=== PATIENT | male | born 1970 | race Caucasian/White ===

== ENCOUNTER 2021-04-01 18:36 | Inpatient (IN) | payer MEDICAID, OTHER ==
[~2021-04-01] VITALS: Ht 177.8 cm; Wt 118.0 kg
[2021-04-01] MEDS ORDERED: LORazepam 2MG/ML-1ML VIAL IV ONE (19:30)
[2021-04-01] MEDS ORDERED: SODIUM CHLORIDE 0.9% 1,000 ML IV ONE ×2 (19:30)
[2021-04-01 19:38] LABS: Hematocrit 50.1 % (41.0-53.0); Hemoglobin 16.7 g/dL (13.5-17.5); Mean Corpuscular Hemoglobin 29.5 pg (28.0-32.0); Mean Corpuscular Hgb Conc. 33.4 g/dL (32.0-36.0); Mean Corpuscular Volume 88.4 fL (80.0-100.0); Platelet Count (auto) 345 10^3/uL (140-450); Red Blood Cells 5.66 10^6/uL (4.5-5.90); White Blood Cell 23.7 10^3/uL (4.4-10.8)
[2021-04-01 19:53] LABS: Basophils % (manual) 0 (0.0-2.0); Blast Cells 0; Eosinophils % (manual) 0 (0-7); Metamyelocytes % 0; Myelocytes % 0; Promyelocytes % 0; Reactive Lymphocytes 0
[2021-04-01 19:55] LABS: Albumin 5.7 g/dL (3.4-5.0); Calcium 10.8 mg/dL (8.5-10.1); Potassium 4.4 mmol/L (3.5-5.1)
[2021-04-01 20:00] LABS: BUN/Creatinine Ratio 6.8
[2021-04-01 20:10] LABS: Bilirubin, Total 3.6 mg/dL (0.2-1.0)
[2021-04-01 20:31] LABS: Band Neutrophils % (manual) 4; Lymphocytes % (manual) 11 (10.0-50.0); Monocytes % (manual) 3 (0-12)
[2021-04-01 20:38] LABS: Magnesium 2.2 mg/dL (1.6-2.6)
[2021-04-01] MEDS ORDERED: cloNIDine HCL 0.1 MG TAB PO PRN (21:00)
[2021-04-01] MEDS ORDERED: TEMAZEPAM 15 MG CAP PO PRN (21:00)
[2021-04-01] MEDS ORDERED: MORPHINE SULF INJ 2 MG/ML SYRINGE 1ML IV PRN (21:00)
[2021-04-01] MEDS ORDERED: ONDANSETRON HCL 4 MG/2 ML VIAL IV PRN (21:00)
[2021-04-01] MEDS ORDERED: NITROGLYCERIN 0.4 MG SL TAB SL PRN (21:00)
[2021-04-01] MEDS ORDERED: ACETAMINOPHEN 325 MG TAB PO PRN (21:00)
[2021-04-01] MEDS: SODIUM CHLORIDE 0.9% 1,000 ML IV SCH (22:30)
[2021-04-01 23:11] LABS: Urine Bacteria FEW /hpf (None Seen); Urine Blood 3+ /uL (Negative); Urine Hyaline Cast MOD /lpf (0 - 2); Urine Mucus FEW (None Seen); Urine Specific Gravity 1.017 (1.001-1.035); Urine WBC 6 /hpf (0 - 3)
[2021-04-02 05:00] VITALS: BP 93/55
[2021-04-02 05:33] LABS: Basophils # (auto) 0.1 10 ^3/uL (0-0.2); Basophils % (auto) 0.4 % (0.0-2.0); Eosinophils # (auto) 0.2 10 ^3/uL (0-0.8); Eosinophils % (auto) 1.4 % (0.0-7.0); Hematocrit 42.5 % (41.0-53.0); Hemoglobin 14.7 g/dL (13.5-17.5); Lymphocytes # (auto) 2.7 10 ^3/uL (0.4-5.4); Lymphocytes % (auto) 19.5 % (10.0-50.0); Mean Corpuscular Hemoglobin 30.5 pg (28.0-32.0); Mean Corpuscular Hgb Conc. 34.6 g/dL (32.0-36.0); Mean Corpuscular Volume 88.1 fL (80.0-100.0); Monocytes # (auto) 1.3 10 ^3/uL (0-1.3); Monocytes % (auto) 9.1 % (0.0-12.0); Neutrophils # (auto) 9.8 10 ^3/uL (1.6-8.6); Neutrophils % (auto) 69.6 % (37.0-80.0); Nucleated Red Blood Cells % 0.1 %; Platelet Count (auto) 231 10^3/uL (140-450); Red Blood Cells 4.82 10^6/uL (4.5-5.90); Red Cell Distribution Width 13.1 % (11.8-14.3)
[2021-04-02 06:00] LABS: Potassium 3.8 mmol/L (3.5-5.1)
[2021-04-02 06:12] LABS: Albumin 4.1 g/dL (3.4-5.0); BUN/Creatinine Ratio 13.7; Bilirubin, Total 2.6 mg/dL (0.2-1.0); Calcium 8.8 mg/dL (8.5-10.1); Total Protein 7.4 g/dL (6.4-8.2)
[2021-04-02] MEDS: SODIUM CHLORIDE 0.9% 1,000 ML IV SCH ×2 (06:35→16:20)
[2021-04-02 08:22] VITALS: BP 119/61
[2021-04-02] MEDS: PANTOPRAZOLE 40 MG TAB PO SCH (09:23)
[2021-04-02 12:33] VITALS: BP 119/58
[2021-04-02 16:16] LABS: Urine Bacteria NONE SEEN /hpf (None Seen); Urine Blood Negative /uL (Negative); Urine Specific Gravity 1.009 (1.001-1.035); Urine WBC 2 /hpf (0 - 3)
[2021-04-02 16:44] VITALS: BP 91/44
[2021-04-02 20:00] VITALS: BP 104/56
[2021-04-02 22:20] VITALS: BP 104/56
[2021-04-03] MEDS: SODIUM CHLORIDE 0.9% 1,000 ML IV SCH ×2 (03:00→15:50)
[2021-04-03 05:07] VITALS: BP 113/54
[2021-04-03 06:14] LABS: BUN/Creatinine Ratio 16.2; Calcium 8.3 mg/dL (8.5-10.1); Potassium 4.7 mmol/L (3.5-5.1)
[2021-04-03 08:53] VITALS: BP 121/53
[2021-04-03] MEDS: PANTOPRAZOLE 40 MG TAB PO SCH (09:18)
[2021-04-03 13:00] VITALS: BP 107/62
[2021-04-03 16:35] VITALS: BP 113/54
[2021-04-03 16:37] VITALS: BP 113/54
== END 2021-04-03 17:57 | disposition home or self-care (01) | DRG 422 ==
LOC: EDBD 18:36 → ER 18:36 → TELE 20:49 → TELE-WESTW 23:09
PROVIDERS: ADMIT Nurse Practitioner; ATTEND Internal Medicine
DX: E86.0 Dehydration (principal); N17.0 Acute kidney failure with tubular necrosis; R65.11 Systemic inflammatory response syndrome (SIRS) of non-infectious origin with acute organ dysfunction; M62.82 Rhabdomyolysis; T67.5XXA Heat exhaustion, unspecified, initial encounter; E66.9 Obesity, unspecified; I10 Essential (primary) hypertension; Z90.49 Acquired absence of other specified parts of digestive tract; Z88.0 Allergy status to penicillin; X30.XXXA Exposure to excessive natural heat, initial encounter; Y92.89 Other specified places as the place of occurrence of the external cause; R31.29 Other microscopic hematuria
CPT/HCPCS: 36415; 76775; 80048; 80053; 81001; 82550; 83735; 83874; 85007; 85025; 85027; 87040; 87086; 87426; 96361; 96374; G0378